=== PATIENT | female | born 1990 | race Caucasian/White ===

== ENCOUNTER 2018-03-20 10:22 | Emergency (ER) | payer SELFPAY ==
[2018-03-20] MEDS ORDERED: Ketorolac 60 MG/2 ML SDV IM ONE (10:57)
--- NOTE | 2018-03-20 11:00 | EDM.PDOC ---
ED HPI GENERAL MEDICAL PROBLEM - General Chief Complaint: Abdominal Pain Stated Complaint: STOMACH PAIN Time Seen by Provider: 03/20/18 10:22 Source of Information: Reports: Patient, Family History Limitations: Reports: No Limitations - History of Present Illness INITIAL COMMENTS - FREE TEXT/NARRATIVE: 27 y.o.w.f came with her family due to lower abd. pain. Pt is on her menstrual period. Pt has those symptoms every month for several years. Pt came to the ed today because her pain is worse today. No trauma, denies . No dysuria. No fever and chills. Pt has occ nausea and was vomiting up bile. She had diarrhea as well. No other acute medical issues. BP 121/46 Temp 36.8 Pulse 87 RR 16 Pulse ox 99% on RA Onset Date: 02/20/18 Onset Time: 09:00 Duration: Week(s): (to years), Intermittent Location: Reports: Pelvis Quality: Reports: Burning, Dull, Pressure, Same as Previous Episode Severity: Moderate Improves with: Reports: Medication Worsens with: Reports: Other (menstrual period) Associated Symptoms: Reports: No Other Symptoms Abdominal Pain Score (Numeric/FACES): 10 - Related Data Allergies Allergy/AdvReac Type Severity Reaction Status Date / Time No Known Allergies Allergy Verified 03/20/18 10:44 Home Meds: Home Meds NK [No Known Home Meds] 03/20/18 [History] Social & Family History - Tobacco Use Smoking Status *Q: Never Smoker - Caffeine Use Caffeine Use: Reports: Coffee - Recreational Drug Use Recreational Drug Use: No ED ROS GENERAL - Review of Systems Review Of Systems: See Below Constitutional: Reports: No Symptoms HEENT: Reports: No Symptoms Respiratory: Reports: No Symptoms Cardiovascular: Reports: No Symptoms Endocrine: Reports: No Symptoms GI/Abdominal: Reports: Abdominal Pain (pelvic) : Reports: No Symptoms Musculoskeletal: Reports: No Symptoms Skin: Reports: No Symptoms Neurological: Reports: No Symptoms Psychiatric: Reports: No Symptoms Hematologic/Lymphatic: Reports: No Symptoms Immunologic: Reports: No Symptoms ED EXAM, GI/ABD - Physical Exam Exam: See Below Exam Limited By: No Limitations General Appearance: Alert, WD/WN, Mild Distress Eyes: Bilateral: Normal Appearance Ears: Normal External Exam, Normal Canal Nose: Normal Inspection Throat/Mouth: Normal Inspection Head: Atraumatic, Normocephalic Neck: Normal Inspection, Supple, Non-Tender, Full Range of Motion Respiratory/Chest: No Respiratory Distress, Lungs Clear, Normal Breath Sounds, No Accessory Muscle Use, Chest Non-Tender Cardiovascular: Normal Peripheral Pulses, Regular Rate, Rhythm, No Edema, No Gallop GI/Abdominal Exam: Normal Bowel Sounds, Tender (suprapubic) (Female) Exam: Deferred Rectal (Female) Exam: Deferred Back Exam: Normal Inspection, Full Range of Motion Extremities: Normal Inspection, Normal Range of Motion, Non-Tender, No Pedal Edema Neurological: Alert, Oriented Psychiatric: Normal Affect, Normal Mood Skin Exam: Warm, Dry, Intact, Normal Color, No Rash Lymphatic: No Adenopathy Course - Vital Signs Text/Narrative:: 27 y.o.w.f came with her family due to lower abd. pain. Pt is on her menstrual period. Pt has those symptoms every month for several years. Pt came to the ed today because her pain is worse today. No trauma, denies . No dysuria. No fever and chills. Pt has occ nausea and was vomiting up bile. She had diarrhea as well. No other acute medical issues. BP 121/46 Temp 36.8 Pulse 87 RR 16 Pulse ox 99% on RA PE: WNWD WF wth suprapubic pain, no dysuria Labs: CBC, BMP nl, Glc was 131 UA was neg HCG was neg Impression: Menstrual pain Tx: Toradol Reexam: 50% improved Plan: D/C with instructions Last Recorded V/S: Last Vital Signs Temp 36.7 C 03/20/18 12:40 Pulse 64 03/20/18 12:40 Resp 16 03/20/18 12:40 BP 110/45 L 03/20/18 12:40 Pulse Ox 100 03/20/18 12:40 - Orders/Labs/Meds Labs: Laboratory Tests 03/20/18 03/20/18 03/20/18 Range/Units 11:00 11:00 11:00 WBC 11.7 (4.5-12.0) X10-3/uL RBC 4.34 (3.23-5.20) x10(6)uL Hgb 14.0 (11.5-15.5) g/dL Hct 40.1 (30.0-51.3) % MCV 92.5 (80-96) fL MCH 32.2 (27.7-33.6) pg MCHC 34.8 (32.2-35.4) g/dL RDW 11.5 (11.5-15.5) % Plt Count 222 (125-369) X10(3)uL MPV 8.9 (7.4-10.4) fL Add Manual Diff Yes Neutrophils % (Manual) 90 H (46-82) % Lymphocytes % (Manual) 6 L (13-37) % Monocytes % (Manual) 4 (4-12) % Sodium 137 (135-145) mmol/L Potassium 4.1 (3.5-5.3) mmol/L Chloride 102 (100-110) mmol/L Carbon Dioxide 27 (21-32) mmol/L BUN 15 (7-18) mg/dL Creatinine 0.9 (0.55-1.02) mg/dL Est Cr Clr Drug Dosing 95.55 mL/min Estimated GFR (MDRD) > 60 (>60) BUN/Creatinine Ratio 16.7 (9-20) Glucose 121 H (80-116) mg/dL Calcium 8.9 (8.6-10.2) mg/dL HCG, Quant < 1 L (<5) mIU/mL Urine Color (YELLOW) Urine Appearance (CLEAR) Urine pH (5.0-6.5) Ur Specific [place] (1.010-1.025) Urine Protein (NEGATIVE) mg/dL Urine Glucose (UA) (NEGATIVE) mg/dL Urine Ketones (NEGATIVE) mg/dL Urine Occult Blood (NEGATIVE) Urine Nitrite (NEGATIVE) Urine Bilirubin (NEGATIVE) Urine Urobilinogen (NEGATIVE) mg/dL Ur Leukocyte Esterase (NEGATIVE) Urine WBC (0) Ur Squamous Epith Cells (NS,R,O) Urine Bacteria (NS) 03/20/18 Range/Units 11:56 WBC (4.5-12.0) X10-3/uL RBC (3.23-5.20) x10(6)uL Hgb (11.5-15.5) g/dL Hct (30.0-51.3) % MCV (80-96) fL MCH (27.7-33.6) pg MCHC (32.2-35.4) g/dL RDW (11.5-15.5) % Plt Count (125-369) X10(3)uL MPV (7.4-10.4) fL Add Manual Diff Neutrophils % (Manual) (46-82) % Lymphocytes % (Manual) (13-37) % Monocytes % (Manual) (4-12) % Sodium (135-145) mmol/L Potassium (3.5-5.3) mmol/L Chloride (100-110) mmol/L Carbon Dioxide (21-32) mmol/L BUN (7-18) mg/dL Creatinine (0.55-1.02) mg/dL Est Cr Clr Drug Dosing mL/min Estimated GFR (MDRD) (>60) BUN/Creatinine Ratio (9-20) Glucose (80-116) mg/dL Calcium (8.6-10.2) mg/dL HCG, Quant (<5) mIU/mL Urine Color Yellow (YELLOW) Urine Appearance Slightly cloudy (CLEAR) Urine pH 8.0 H (5.0-6.5) Ur Specific [place] 1.010 (1.010-1.025) Urine Protein Negative (NEGATIVE) mg/dL Urine Glucose (UA) Normal (NEGATIVE) mg/dL Urine Ketones Negative (NEGATIVE) mg/dL Urine Occult Blood Negative (NEGATIVE) Urine Nitrite Negative (NEGATIVE) Urine Bilirubin Negative (NEGATIVE) Urine Urobilinogen Normal (NEGATIVE) mg/dL Ur Leukocyte Esterase Negative (NEGATIVE) Urine WBC 0-5 (0) Ur Squamous Epith Cells Few H (NS,R,O) Urine Bacteria Moderate H (NS) Meds: Medications Discontinued Medications Generic Name Dose Route Start Last Admin Trade Name Freq PRN Reason Stop Dose Admin Ketorolac Tromethamine 60 mg 03/20/18 10:57 03/20/18 11:07 Toradol IM 03/20/18 10:58 60 mg ONETIME ONE Administration Departure - Departure Time of Disposition: 12:53 Disposition: Home, Self-Care 01 Condition: Good Clinical Impression: Menstrual cramps - Discharge Information Instructions: Menstruation Referrals: PCP,None [Primary Care Provider] - Forms: ED Department Discharge Additional Instructions: Please take Motrin 600 mg with food every 6-8 hours, please f/u with [facility] please came back if your symptoms get worse acutely
== END 2018-03-20 13:07 | disposition home or self-care (01) ==
LOC: FB.ED 10:22
DX: N94.6 Dysmenorrhea, unspecified (principal)
CPT/HCPCS: 36415; 80048; 81001; 84702; 85025; 96372; 99284; J1885